=== PATIENT | male | born 1990 | race African-American/Black ===

== ENCOUNTER 2020-11-28 18:27 | Emergency (ER) | payer OTHER ==
[~2020-11-28] VITALS: Ht 188 cm; Wt 89.5 kg
[2020-11-28 18:42] VITALS: BP 145/75
[2020-11-28] MEDS ORDERED: CETIRIZINE (ZyrTEC) 10 MG TAB PO ONE (22:05)
[2020-11-28] MEDS ORDERED: OLOPATADINE 0.1% OPHTH SOL 5ML(PATANOL) OU STA (22:05)
[2020-11-28] MEDS ORDERED: OLOP0.1D OP (23:03)
[2020-11-28] MEDS ORDERED: ALL10TAB2 PO (23:03)
== END 2020-11-28 23:43 | disposition home or self-care (01) ==
LOC: M ED 18:27
DX: J00 Acute nasopharyngitis [common cold] (principal); B30.9 Viral conjunctivitis, unspecified; J30.89 Other allergic rhinitis; Z11.52 Encounter for screening for COVID-19
CPT/HCPCS: 99283; U0003

== ENCOUNTER → 2024-08-15 | Outpatient (CLI) | payer OTHER ==
[~2024-08-15] MED LIST: ALL10TAB2 PO; GASTROGRAFIN SOLUTION 30ML ONE; ISOVUE-370 76% 100ML VIAL ONE; OLOP5DRO17 OP
== END ==
LOC: M PLAIMG 10:56
PROVIDERS: ATTEND Physician Assistant
DX: R10.2 Pelvic and perineal pain (principal); K57.90 Diverticulosis of intestine, part unspecified, without perforation or abscess without bleeding
CPT/HCPCS: 72193; Q9963; Q9967

== ENCOUNTER → 2025-02-07 | Outpatient (CLI) | payer OTHER ==
[~2025-02-07] MED LIST changes: -GASTROGRAFIN SOLUTION 30ML ONE; -ISOVUE-370 76% 100ML VIAL ONE
[2025-02-07 12:42] LABS: BASO # 0.0 10^3/uL (0.0-0.2); BASO % 0.5 % (0.0-1.0); EOS # 0.0 10^3/uL (0.0-0.5); EOS % 0.8 % (0.0-3.0); LYMPH # 1.2 10^3/uL (1.5-5.0); LYMPH % 33.1 % (24.0-44.0); MONO # 0.3 10^3/uL (0.0-0.8); MONO % 8.5 % (2.0-8.0); NEUTROPHILS # 2.1 10^3/uL (1.5-8.5); NEUTROPHILS % 56.8 % (36.0-66.0); PLATELET COUNT, AUTOMATED 206 10^3/uL (150-450)
[2025-02-07 13:35] LABS: HIV 1&2 SCREEN NEGATIVE (NEGATIVE)
== END ==
LOC: M WUC 10:39
PROVIDERS: ATTEND Student in an Organized Health Care Education/Training Program
DX: R21 Rash and other nonspecific skin eruption (principal)